=== PATIENT | male | born 1970 | race Caucasian/White ===

== ENCOUNTER 2017-07-18 20:52 | Emergency (ER) | payer SELFPAY ==
[2017-07-18] MEDS ORDERED: Sodium Chloride 0.9% 1,000 ML IV STA (22:04)
--- NOTE | 2017-07-18 22:24 | ED PDOC ---
HPI: Abdomen Time Seen by Provider: 07/18/17 21:24 Chief Complaint (Nursing): Abdominal Pain History Per: Patient History/Exam Limitations: no limitations Onset/Duration Of Symptoms: Days (3) Additional Complaint(s): 47-year-old male with past medical history of diverticulitis complains of intermittent lower abdominal pain associated with dark stools and constipation for the past 3 days. Patient states that his last episode of diverticulitis was 5 years ago and he was treated with antibiotics, required no surgery. He adds that he normally has a bowel movement every other day. Otherwise: (+) nausea, (- ) vomiting, (-) diarrhea, (-) fever, (-) melena, (-) hematochezia. Has no history of prior abdominal surgery. PMD Tala Past Medical History Vital Signs: Last Vital Signs Temp 97.8 F 07/19/17 03:06 Pulse 73 07/19/17 03:06 Resp 17 07/19/17 03:06 BP 117/71 07/19/17 03:06 Pulse Ox 98 07/19/17 03:06 - Medical History PMH: Diverticulitis - Family History Family History: States: No Known Family Hx - Home Medications Home Medications: Ambulatory Orders Medication Instructions Recorded Cyclobenzaprine HCl [Flexeril] 10 mg PO TID #21 tab 02/22/15 Naproxen 500 mg PO Q12 #20 tab 02/22/15 Ciprofloxacin HCl [Cipro] 500 mg PO BID #14 tablet 07/19/17 Metronidazole [Flagyl] 500 mg PO TID #21 tab 07/19/17 - Allergies Allergies/Adverse Reactions: Allergies Allergy/AdvReac Type Severity Reaction Status Date / Time No Known Allergies Allergy Verified 07/18/17 21:05 Review of Systems Constitutional: Negative for: Fever, Malaise Cardiovascular: Negative for: Chest Pain, Palpitations Respiratory: Negative for: Cough, Shortness of Breath Gastrointestinal: Positive for: Nausea, Abdominal Pain, Constipation, Other ( dark stools) Genitourinary Male: Negative for: Dysuria, Frequency Skin: Negative for: Rash, Lesions Physical Exam - Physical Exam Comments: GENERAL APPEARANCE: Patient is awake, alert, oriented x 3, in mild painful distress. SKIN: Warm, dry; (-) cyanosis. EYES: (-) conjunctival pallor, (-) scleral icterus. ENMT: Mucous membranes moist. NECK: (-) tenderness, (-) stiffness, (-) lymphadenopathy. CHEST AND RESPIRATORY: (-) rales, (-) rhonchi, (-) wheezes; breath sounds equal bilaterally. HEART AND CARDIOVASCULAR: (-) irregularity; (-) murmur, (-) gallop. ABDOMEN AND GI: (-) distention. Bowel sounds active; (+) diffuse abdominal tenderness, greatest in the LLQ, (-) guarding, (-) rebound, (-) palpable masses , (-) CVA tenderness. EXTREMITIES: (-) deformity, (-) edema, (+) distal pulses. NEURO AND PSYCH: Mental status as above; (-) focal findings. - Laboratory Results Result Diagrams: 07/18/17 22:12 07/18/17 22:12 - ECG O2 Sat by Pulse Oximetry: 99 Medical Decision Making Medical Decision Making: Impression : r/o diverticulitis, consider constipation Plan: -- Labs -- IV fluids -- Urinalysis -- Reassess and disposition -- CT AP Patient offered analgesics, but is refusing at this time, states that he is comfortable for now. Labs reviewed and are wnl. Patient pending CT. [address], results pending. CT A/P with IV contrast: FINDINGS: LUNG BASES: No significant abnormality seen. ABDOMEN: LIVER: No acute abnormality of the liver identified. GALLBLADDER AND BILE DUCTS: No CT evidence of acute cholecystitis. No evidence of significant biliary ductal dilatation. PANCREAS: No CT evidence of acute pancreatitis. SPLEEN: No acute abnormality of the spleen identified. ADRENALS: No acute abnormality of the adrenal glands identified. KIDNEYS AND URETERS: Low density lesion in the right kidney kidney, most likely a cyst. This measures 1.4 cm. STOMACH AND BOWEL: Mild to moderate fat stranding and infiltration, consistent with inflammatory change, is seen in the fat adjacent to the proximal sigmoid colon. Segmental wall thickening of the colon is also noted in this same area. Multiple nearby colonic diverticula are seen. Findings are most compatible with acute diverticulitis. No evidence of significant focal fluid collection or abscess. No nearby extraluminal air seen to suggest perforation. Moderate diverticulosis of the colon. Otherwise, no significant abnormality of the bowel is identified. No evidence of small bowel obstruction. PELVIS: APPENDIX: Normal appendix is not seen, however, there are no significant inflammatory changes visualized in the expected location of the appendix to suggest appendicitis. Recommend clinical correlation. BLADDER: Mild thickening of the bladder wall. REPRODUCTIVE: Prostate gland is mildly enlarged. ABDOMEN and PELVIS: INTRAPERITONEAL SPACE: See above. No evidence of diffuse free intraperitoneal air or significant free fluid. BONES/JOINTS: No acute fractures or other acute bony abnormality noted. SOFT TISSUES: No acute abnormality of the visualized soft tissues is seen. VASCULATURE: No evidence of abdominal aortic aneurysm. No evidence of periaortic hemorrhage. LYMPH NODES: No evidence of diffuse lymphadenopathy. IMPRESSION: - Findings compatible with acute diverticulitis of the sigmoid colon. No evidence of abscess formation or perforation. - Mild bladder wall thickening. This is a nonspecific finding, but can be seen with cystitis. Recommend clinical correlation. - See above for remaining findings. Dictated and Authenticated by: Ashely Maloney MD 07/19/2017 12:14 AM Eastern Time ([place] & [place]) 0030 On re-evaluation, patient reports that his pain is mild at this time, is refusing analgesics still as he states that he is comfortable. On exam, abdomen remains soft with mild diffuse abdominal tenderness, greatest in the lower abdomen, no guarding. Lab and CT results d/w the patient. Cipro and flagyl IV ordered. 0130 Based on history, exam and diagnostic results plan will be for outpatient follow -up. Patient feels comfortable going home. Advised to follow up with primary care physician in 1-2 days without fail. Advised to take medication as prescribed. Return to the emergency room at any time for any new or worsening symptoms. Patient states he fully agrees with and understands discharge instructions. States that he agrees with the plan and disposition. Verbalized and repeated discharge instructions and plan. I have given the patient opportunity to ask any additional questions. Disposition - Clinical Impression Clinical Impression: Acute diverticulitis - Patient ED Disposition Is Patient to be Admitted: No Counseled Patient/Family Regarding: Studies Performed, Diagnosis, Need For Followup, Rx Given - Disposition Disposition: Routine/Home Disposition Time: 00:30 Condition: STABLE Additional Instructions: Thank you for letting us take care of you today. You were treated for acute diverticulitis. The emergency medical care you received today was directed at your acute symptoms. If you were prescribed any medication, please fill it and take as directed. It may take several days for your symptoms to resolve. Return to the Emergency Department if your symptoms worsen, do not improve, or if you have any other problems. Please contact your doctor in 2 days for re-evaluation and follow up. Bring any paperwork you were given at discharge with you along with any medications you are taking to your follow up visit. Our treatment cannot replace ongoing medical care by a primary care provider (PCP) outside of the emergency department. Thank you for allowing the [facility] team to be part of your care today. If you had a CT scan: A Radiologist will review the ED reading if any change in treatment is needed we will contact you. Prescriptions: Ciprofloxacin HCl [Cipro] 500 mg PO BID #14 tablet Metronidazole [Flagyl] 500 mg PO TID #21 tab Instructions: Diverticulitis Forms: [employer] ([place]), [facility] ED School/Work Excuse
[2017-07-18 22:29] LABS: URINE BILIRUBIN NEGATIVE (NEGATIVE); URINE BLOOD SMALL (NEGATIVE); URINE CLARITY CLEAR (Clear); URINE COLOR YELLOW (YELLOW); URINE GLUCOSE (UA) NEG (Normal); URINE LEUKOCYTE ESTERASE NEG Leu/uL (Negative); URINE PROTEIN NEGATIVE (NEGATIVE); URINE UROBILINOGEN 0.2-1.0 mg/dL (0.2-1.0)
[2017-07-18 22:34] LABS: ALB/GLOB RATIO 1.1 (1.0-2.1); ALT/SGPT 56 U/L (21-72); AST/SGOT 52 U/L (17-59); BLOOD UREA NITROGEN 26 mg/dl (9-20); CALCIUM 8.9 mg/dL (8.4-10.2); GFR AFRICAN-AMERICAN > 60; GFR NON-AFRICAN AMERICAN > 60; LIPASE 156 U/L (23-300)
[2017-07-18 22:38] LABS: BASO # 0.1 K/uL (0.0-0.2); BASO % 0.8 % (0.0-2.0); EOS # 0.2 K/uL (0.0-0.7); EOS % 2.4 % (0.0-4.0); HEMOGLOBIN 13.6 g/dL (12.0-18.0); LYMPH # 2.9 K/uL (1.0-4.3); LYMPH % 29.8 % (20.0-40.0); MEAN CELL VOLUME 85.3 fl (80.0-94.0); MEAN CORPUSCULAR HEMOGLOBIN 28.8 pg (27.0-31.0); MEAN CORPUSCULAR HGB CONC 33.8 g/dL (33.0-37.0); MEAN PLATELET VOLUME 9.3 fl (7.2-11.7); MONO # 1.1 K/uL (0.0-0.8); MONO % 10.9 % (0.0-10.0); NEUT # 5.4 K/uL (1.8-7.0); NEUT % 56.1 % (50.0-75.0); NRBC % 0.1 % (0.0-0.0); RBC 4.72 Mil/uL (4.40-5.90); RED CELL DISTRIBUTION WIDTH 12.8 % (11.5-14.5); WHITE BLOOD COUNT 9.7 K/uL (4.8-10.8)
[2017-07-18] MEDS ORDERED: Sodium Chloride 0.9% 50 ML IV ONE (22:44)
[2017-07-18] MEDS ORDERED: Iohexol 300 100 ML IJ ONE (22:44)
--- NOTE | 2017-07-19 00:14 | CT ---
EXAM: CT Abdomen and Pelvis With Intravenous Contrast EXAM DATE/TIME: 07/18/2017 10:07 PM CLINICAL HISTORY: 47 years old, male; Pain; Abdominal pain; Localized; Lower; Additional info: Lower abd pain, R/O diverticulitis TECHNIQUE: Axial computed tomography images of the abdomen and pelvis with intravenous contrast. All CT scans at this facility use one or more dose reduction techniques, viz.: automated exposure control; ma/kV adjustment per patient size (including targeted exams where dose is matched to indication; i.e. head); or iterative reconstruction technique. Coronal and sagittal reformatted images were created and reviewed. CONTRAST: 90 mL of [id number] administered intravenously. COMPARISON: Prior CT abdomen and pelvis of 2011-11-11 FINDINGS: LUNG BASES: No significant abnormality seen. ABDOMEN: LIVER: No acute abnormality of the liver identified. GALLBLADDER AND BILE DUCTS: No CT evidence of acute cholecystitis. No evidence of significant biliary ductal dilatation. PANCREAS: No CT evidence of acute pancreatitis. SPLEEN: No acute abnormality of the spleen identified. ADRENALS: No acute abnormality of the adrenal glands identified. KIDNEYS AND URETERS: Low density lesion in the right kidney kidney, most likely a cyst. This measures 1.4 cm. STOMACH AND BOWEL: Mild to moderate fat stranding and infiltration, consistent with inflammatory change, is seen in the fat adjacent to the proximal sigmoid colon. Segmental wall thickening of the colon is also noted in this same area. Multiple nearby colonic diverticula are seen. Findings are most compatible with acute diverticulitis. No evidence of significant focal fluid collection or abscess. No nearby extraluminal air seen to suggest perforation. Moderate diverticulosis of the colon. Otherwise, no significant abnormality of the bowel is identified. No evidence of small bowel obstruction. PELVIS: APPENDIX: Normal appendix is not seen, however, there are no significant inflammatory changes visualized in the expected location of the appendix to suggest appendicitis. Recommend clinical correlation. BLADDER: Mild thickening of the bladder wall. REPRODUCTIVE: Prostate gland is mildly enlarged. ABDOMEN and PELVIS: INTRAPERITONEAL SPACE: See above. No evidence of diffuse free intraperitoneal air or significant free fluid. BONES/JOINTS: No acute fractures or other acute bony abnormality noted. SOFT TISSUES: No acute abnormality of the visualized soft tissues is seen. VASCULATURE: No evidence of abdominal aortic aneurysm. No evidence of periaortic hemorrhage. LYMPH NODES: No evidence of diffuse lymphadenopathy. IMPRESSION: - Findings compatible with acute diverticulitis of the sigmoid colon. No evidence of abscess formation or perforation. - Mild bladder wall thickening. This is a nonspecific finding, but can be seen with cystitis. Recommend clinical correlation. - See above for remaining findings.
[2017-07-19] MEDS ORDERED: metroNIDAZOLE 500mg/100ml NS 100 ML IVPB STA (00:31)
[2017-07-19] MEDS ORDERED: Ciprofloxacin 400mg/200ml D5W 400 MG/200 ML BAG IVPB STA (00:31)
[2017-07-19] MEDS ORDERED: Ciprofloxacin 400mg/200ml D5W 400 MG/200 ML BAG IVPB ONE (00:47)
[2017-07-19] MEDS ORDERED: metroNIDAZOLE 500mg/100ml NS 100 ML IVPB ONE (00:47)
[2017-07-19 03:07] VITALS: BP 117/71; PULSE 73; RESP 17; TEMP 97.8
[2017-07-19 03:54] VITALS: O2SAT 99
== END 2017-07-19 03:06 | disposition home or self-care (01) ==
LOC: H.ER 20:52
DX: K57.92 Diverticulitis of intestine, part unspecified, without perforation or abscess without bleeding (principal)
CPT/HCPCS: 74177; 80053; 81003; 83690; 85025; 96361; 96365; 96367; 99284; J0744; J7030; Q9967

== ENCOUNTER 2017-12-12 18:14 | Emergency (ER) | payer OTHER ==
[2017-12-12 18:37] VITALS: RESP 18
--- NOTE | 2017-12-12 18:59 | ED PDOC ---
HPI: Male Pain Time Seen by Provider: 12/12/17 18:39 Chief Complaint (Nursing): Male Genitourinary Chief Complaint (Provider): Male Genitourinary History Per: Patient History/Exam Limitations: no limitations Onset/Duration Of Symptoms: Days Current Symptoms Are (Timing): Still Present Associated Symptoms: Urinary Symptoms Additional Complaint(s): 47 y/o male presents to the ED for evaluation of constant genitourinary pain, onset 3 weeks ago. Patient states pain is located inside between the rectum and the testicles and is associated with urinary frequency. Patient denies nausea, vomiting and diarrhea. In addition, patient reports of pain to the anterior neck area for approximately one week. Patient states he feels like there is something moving inside. Patient also denies fever and chills. PMD: none Past Medical History Reviewed: Historical Data, Nursing Documentation, Vital Signs Vital Signs: Last Vital Signs Temp 97.5 F L 12/12/17 18:35 Pulse 69 12/12/17 18:35 Resp 18 12/12/17 18:35 BP 117/77 12/12/17 18:35 Pulse Ox 100 12/12/17 18:35 - Medical History PMH: Diverticulitis - Surgical History Surgical History: No Surg Hx - Family History Family History: States: Unknown Family Hx - Home Medications Home Medications: Ambulatory Orders Medication Instructions Recorded Cyclobenzaprine HCl [Flexeril] 10 mg PO TID #21 tab 02/22/15 Naproxen 500 mg PO Q12 #20 tab 02/22/15 Ciprofloxacin HCl [Cipro] 500 mg PO BID #14 tablet 07/19/17 Metronidazole [Flagyl] 500 mg PO TID #21 tab 07/19/17 Doxycycline Monohydrate [Mondoxyne 100 mg PO BID #20 capsule 12/12/17 Nl] - Allergies Allergies/Adverse Reactions: Allergies Allergy/AdvReac Type Severity Reaction Status Date / Time No Known Allergies Allergy Verified 12/12/17 18:35 Review of Systems ROS Statement: Except As Marked, All Systems Reviewed And Found Negative Constitutional: Negative for: Fever, Chills ENT: Positive for: Throat Pain Gastrointestinal: Negative for: Nausea, Vomiting, Diarrhea Genitourinary Male: Positive for: Frequency, Other (Pain between the rectum and testicles) Physical Exam - Reviewed Nursing Documentation Reviewed: Yes Vital Signs Reviewed: Yes - Physical Exam Appears: Positive for: No Acute Distress Head Exam: Positive for: ATRAUMATIC Skin: Positive for: Normal Color, Warm, Dry Eye Exam: Positive for: Normal appearance Cardiovascular/Chest: Negative for: Bradycardia, Tachycardia Respiratory: Negative for: Accessory Muscle Use, Respiratory Distress Neurologic/Psych: Positive for: Alert, Oriented (x3) - Laboratory Results Result Diagrams: 12/12/17 19:02 12/12/17 19:02 - ECG O2 Sat by Pulse Oximetry: 100 (RA) Pulse Ox Interpretation: Normal Medical Decision Making Medical Decision Making: Time: 1855 Plan: -- CT Neck Soft Tissue w/ Contrast -- CT Pelvis w/ IV Contrast -- CMP -- CBC with Differentials -- Chlamydia/GC RNA, TNA -- Urine Culture -- Urinalysis Scribe Attestation: Documented by Karie Gomes, acting as a scribe for Monique Prescott PA-C. Provider Scribe Attestation: All medical record entries made by the Scribe were at my direction and personally dictated by me. I have reviewed the chart and agree that the record accurately reflects my personal performance of the history, physical exam, medical decision making, and the department course for this patient. I have also personally directed, reviewed, and agree with the discharge instructions and disposition. Disposition - Clinical Impression Clinical Impression: Prostate enlargement, Sinusitis - Patient ED Disposition Is Patient to be Admitted: No Counseled Patient/Family Regarding: Diagnosis, Need For Followup, Rx Given - Disposition Disposition: Routine/Home Disposition Time: 22:47 Condition: GOOD Prescriptions: Doxycycline Monohydrate [Mondoxyne Nl] 100 mg PO BID #20 capsule Instructions: Sinusitis, Adult (DC), Benign Prostatic Hyperplasia (Enlarged Prostate) Forms: [employer] ([place])
[2017-12-12 19:41] LABS: BASO % 0.7 % (0.0-2.0); EOS # 0.1 K/uL (0.0-0.7); EOS % 1.9 % (0.0-4.0); HEMOGLOBIN 13.5 g/dL (12.0-18.0); LYMPH # 2.1 K/uL (1.0-4.3); LYMPH % 33.5 % (20.0-40.0); MEAN CELL VOLUME 84.4 fl (80.0-94.0); MEAN CORPUSCULAR HEMOGLOBIN 28.5 pg (27.0-31.0); MEAN CORPUSCULAR HGB CONC 33.8 g/dL (33.0-37.0); MEAN PLATELET VOLUME 8.7 fl (7.2-11.7); MONO # 0.5 K/uL (0.0-0.8); MONO % 8.4 % (0.0-10.0); NEUT # 3.5 K/uL (1.8-7.0); NEUT % 55.5 % (50.0-75.0); NRBC % 0.2 % (0.0-0.0); RBC 4.73 Mil/uL (4.40-5.90); RED CELL DISTRIBUTION WIDTH 13.3 % (11.5-14.5); WHITE BLOOD COUNT 6.3 K/uL (4.8-10.8)
[2017-12-12 19:48] LABS: URINE BILIRUBIN NEGATIVE (NEGATIVE); URINE BLOOD SMALL (NEGATIVE); URINE CLARITY CLEAR (Clear); URINE COLOR YELLOW (YELLOW); URINE GLUCOSE (UA) NEG (Normal); URINE LEUKOCYTE ESTERASE NEG Leu/uL (Negative); URINE PROTEIN NEGATIVE (NEGATIVE); URINE UROBILINOGEN 0.2-1.0 mg/dL (0.2-1.0)
[2017-12-12 20:03] LABS: ALB/GLOB RATIO 1.1 (1.0-2.1); ALT/SGPT 34 U/L (21-72); AST/SGOT 32 U/L (17-59); BLOOD UREA NITROGEN 21 mg/dl (9-20); CALCIUM 9.1 mg/dL (8.4-10.2); GFR NON-AFRICAN AMERICAN > 60
[2017-12-12] MEDS ORDERED: Iohexol 300 100 ML IJ ONE (20:17)
[2017-12-12] MEDS ORDERED: Sodium Chloride 0.9% 50 ML IV ONE (20:17)
[2017-12-12 22:53] VITALS: BP 109/65; PULSE 61; TEMP 97.9; O2SAT 99
--- NOTE | 2017-12-13 12:44 | CT ---
Date of service: 12/12/2017 PROCEDURE: CT Pelvis with contrast HISTORY: pain between rectum and testicles x 3 weeks COMPARISON: None available. TECHNIQUE: Contiguous axial images of the pelvis with contrast. Coronal and sagittal reformats generated. Contrast dose: Radiation dose: Total exam DLP = 1091.49 mGy-cm. This CT exam was performed using one or more of the following dose reduction techniques: Automated exposure control, adjustment of the mA and/or kV according to patient size, and/or use of iterative reconstruction technique. FINDINGS: BLADDER: Mild nonspecific bladder wall thickening. REPRODUCTIVE ORGANS: Mild prostate enlargement. Bilateral hydroceles. VISUALIZED BOWEL: Colonic diverticulosis. PERITONEUM: Unremarkable, as visualized. No free fluid. No free air. LYMPH NODES: Unremarkable. No enlarged lymph nodes. VASCULATURE: No aortic atherosclerotic calcification or mural plaque present. BONES: No fracture or focal lesion. OTHER FINDINGS: None. IMPRESSION: Bilateral hydroceles. Mild prostate enlargement. Mild nonspecific bladder wall thickening.
--- NOTE | 2017-12-13 12:56 | CT ---
Date of service: 12/12/2017 PROCEDURE: CT NECK WITH CONTRAST HISTORY: constant anterior neck pain, cracking/popping sens COMPARISON: None available. TECHNIQUE: CT of the neck with intravenous contrast. Coronal and sagittal reformats generated. Intravenous contrast dose: Radiation dose: Total exam DLP = 0.0 mGy-cm. This CT exam was performed using one or more of the following dose reduction techniques: Automated exposure control, adjustment of the mA and/or kV according to patient size, and/or use of iterative reconstruction technique. FINDINGS: NASOPHARYNX: Unremarkable. SUPRAHYOID NECK: Unremarkable oropharynx, oral cavity, parapharyngeal space and retropharyngeal space. INFRAHYOID NECK: Unremarkable larynx, hypopharynx, and supraglottic space. Vocal cords intact. MASS: None. GLANDS: Parotid and submandibular glands unremarkable. Normal size thyroid gland, without nodule. LYMPH NODES: Normal. No lymphadenopathy. CERVICAL SPINE: No fracture or focal lesion. VASCULAR STRUCTURES: Unremarkable. OTHER FINDINGS: None. IMPRESSION: Unremarkable contrast enhanced CT of the neck.
== END 2017-12-12 22:55 | disposition home or self-care (01) ==
LOC: H.ER 18:14
DX: N40.1 Benign prostatic hyperplasia with lower urinary tract symptoms (principal); J32.9 Chronic sinusitis, unspecified
CPT/HCPCS: 70491; 72193; 80053; 81003; 85025; 87086; 87491; 87591; 99283; Q9967

== ENCOUNTER 2018-04-13 17:18 | Emergency (ER) | payer MEDICAID ==
[2018-04-13 18:00] VITALS: RESP 16
[2018-04-13] MEDS: Sodium Chloride 0.9% 1,000 ML IV STA (19:22)
--- NOTE | 2018-04-13 19:29 | ED PDOC ---
HPI: Abdomen Time Seen by Provider: 04/13/18 18:34 Chief Complaint (Nursing): Abdominal Pain Chief Complaint (Provider): Abdominal Pain History Per: Patient History/Exam Limitations: no limitations Onset/Duration Of Symptoms: Days (x3) Current Symptoms Are (Timing): Still Present Location Of Pain/Discomfort: Suprapubic Quality Of Discomfort: "Pain" Associated Symptoms: Fever, Chills, Diarrhea, Loss Of Appetite, Other (body aches) Additional Complaint(s): 47 year old male with history of diverticulitis presents to the ED with abdominal pain. On Wednesday, patient developed lower abdominal discomfort that has been worsening since onset. Pain is associated with nonbloody diarrhea and decreased appetite. He reports pain worsens a little after he eats. Today, he developed fever, chills, body aches, mild dry cough. He states pain is similar to past episodes of diverticulitis. Patient has a 10 year old daughter at home who is sick with the flu, confirmed via nasal swab. PMD: Clinic Past Medical History Reviewed: Historical Data, Nursing Documentation, Vital Signs Vital Signs: Last Vital Signs Temp 98.1 F 04/13/18 17:57 Pulse 80 04/13/18 17:57 Resp 16 04/13/18 17:57 BP 126/82 04/13/18 17:57 Pulse Ox 98 04/13/18 17:57 - Medical History PMH: Diverticulitis - Family History Family History: States: Unknown Family Hx - Home Medications Home Medications: Ambulatory Orders Medication Instructions Recorded Cyclobenzaprine HCl [Flexeril] 10 mg PO TID #21 tab 02/22/15 Naproxen 500 mg PO Q12 #20 tab 02/22/15 Ciprofloxacin HCl [Cipro] 500 mg PO BID #14 tablet 07/19/17 Metronidazole [Flagyl] 500 mg PO TID #21 tab 07/19/17 Doxycycline Monohydrate [Mondoxyne 100 mg PO BID #20 capsule 12/12/17 Nl] Ciprofloxacin [Cipro] 1 tab PO BID #14 tab 04/13/18 Ibuprofen [Motrin Tab] 600 mg PO Q8 PRN #30 tab 04/13/18 Oseltamivir Cap [Tamiflu] 75 mg PO DAILY #9 cap 04/13/18 Saccharomyces Boulardi [Florastor] 500 mg PO BID #28 cap 04/13/18 metroNIDAZOLE [Flagyl] 500 mg PO TID #30 tab 04/13/18 - Allergies Allergies/Adverse Reactions: Allergies Allergy/AdvReac Type Severity Reaction Status Date / Time No Known Allergies Allergy Verified 04/13/18 17:57 Review of Systems ROS Statement: Except As Marked, All Systems Reviewed And Found Negative Constitutional: Positive for: Fever, Chills Respiratory: Positive for: Cough Gastrointestinal: Positive for: Abdominal Pain, Diarrhea Musculoskeletal: Positive for: Other (body aches) Physical Exam - Reviewed Nursing Documentation Reviewed: Yes Vital Signs Reviewed: Yes - Physical Exam Appears: Positive for: In Acute Distress (mild painful ) Head Exam: Positive for: ATRAUMATIC, NORMOCEPHALIC Skin: Positive for: Warm, Dry Eye Exam: Positive for: EOMI, PERRL ENT: Positive for: Pharynx Is (clear), Other (moist mucous membranes) Neck: Positive for: Painless ROM, Supple Cardiovascular/Chest: Positive for: Regular Rate, Rhythm. Negative for: Murmur Respiratory: Positive for: Normal Breath Sounds. Negative for: Respiratory Distress Gastrointestinal/Abdominal: Positive for: Soft, Tenderness (suprapubic and LLQ). Negative for: Mass, Guarding, Rebound Back: Positive for: Normal Inspection. Negative for: L CVA Tenderness, R CVA Tenderness Extremity: Positive for: Normal ROM. Negative for: Deformity Lymphatic: Negative for: Adenopathy Neurologic/Psych: Positive for: Alert. Negative for: Motor/Sensory Deficits - Laboratory Results Result Diagrams: 04/13/18 19:26 04/13/18 19:26 - ECG O2 Sat by Pulse Oximetry: 98 (RA) Pulse Ox Interpretation: Normal Medical Decision Making Medical Decision Making: Time: 1857 Impression: Febrile illness and abdominal pain Differential diagnoses include but are not limited to: diverticulitis, influenza, viral syndrome, and gastroenteritis. Plan: --CT abdomen and pelvis --CMP --Lact acid --CBC --Tamiflu --Toradol --Tylenol --blood culture --stool culture --influenza --UA Time: 2225 CT abdomen and pelvis: FINDINGS: LUNG BASES: The lung bases appear clear. No pleural effusions are seen. LIVER: Unremarkable. GALLBLADDER AND BILE DUCTS: The gallbladder appears within normal limits. No radioopaque gallstones are seen. No biliary ductal dilatation is evident. PANCREAS: Unremarkable. SPLEEN: Unremarkable. ADRENAL GLANDS: Unremarkable. KIDNEYS, URETERS, AND BLADDER: Both kidneys are normal in size and position. A 1.3 cm cortical cyst is noted in the lateral mid right renal pole.There is no hydronephrosis or hydroureter. No urinary calculi are seen. The urinary bladder is normal in size and configuration. STOMACH AND BOWEL: There is mucosal wall thickening of the stomach measuring up to 1.9 cm transversely. This is suggestive of gastritis. No evidence of bowel obstruction. No evidence suggesting enteritis. There is diverticulosis coli noted in the descending and sigmoid-rectosigmoid colon with associated pericolonic inflammatory stranding compatible with acute diverticulitis. The findings are most pronounced in the lower descending and sigmoid colon. There is no definite pericolonic abscess formation or microperforation detected. APPENDIX: No evidence of acute appendicitis on CT examination. PERITONEUM: No free fluid. No free air. LYMPH NODES: No lymphadenopathy is evident. REPRODUCTIVE: Some prostatic central zone calcifications are noted. Otherwise, unremarkable as visualized. VASCULATURE: No evidence of abdominal aortic aneurysm. BONES: No aggressive appearing osseous lesion. No acute osseous pathology evident. IMPRESSION: 1. Diverticulosis coli of the left hemicolon with associated acute diverticulitis involving the lower descending and sigmoid colon. 2. Findings suggestive of gastritis. 3. Some prostatic central zone calcifications are present. 4. Incidental note is made of a small right renal cyst in the lateral midpole DW pt findings and plan of care. On reevaluation, pt stable for discharge. Return parameters discussed: intractable pain or vomiting, fainting, breathing difficulty, other worrisome symptoms. Questions/concerns answered/addressed. Scribe Attestation: Documented by Naima Murray, acting as a scribe for Mabel Mcgowan MD. Provider Scribe Attestation: All medical record entries made by the Scribe were at my direction and personally dictated by me. I have reviewed the chart and agree that the record accurately reflects my personal performance of the history, physical exam, medical decision making, and the department course for this patient. I have also personally directed, reviewed, and agree with the discharge instructions and disposition. Disposition - Clinical Impression Clinical Impression: Acute diverticulitis Counseled Patient/Family Regarding: Studies Performed, Diagnosis, Need For Followup, Rx Given - Disposition Referrals: [facility] [Outside] Silas Pearson MD [Staff Provider] - Disposition: Routine/Home Disposition Time: 22:30 Condition: STABLE Additional Instructions: BLANDITO COMIDO Y [facility] A RECETO VISITO [facility] O [facility]IC EN 2-3 ROBINS A CHEQAR DE NUEVO Prescriptions: Ciprofloxacin [Cipro] 1 tab PO BID #14 tab Ibuprofen [Motrin Tab] 600 mg PO Q8 PRN #30 tab PRN Reason: Pain, Moderate (4-7) metroNIDAZOLE [Flagyl] 500 mg PO TID #30 tab Oseltamivir Cap [Tamiflu] 75 mg PO DAILY #9 cap Saccharomyces Boulardi [Florastor] 500 mg PO BID #28 cap Instructions: Diverticulitis (DC) Print Language: K[place]ILI
[2018-04-13 19:55] LABS: BASO % 0.3 % (0.0-2.0); EOS # 0.1 K/uL (0.0-0.7); EOS % 0.8 % (0.0-4.0); HEMOGLOBIN 13.3 g/dL (12.0-18.0); MEAN CELL VOLUME 85.5 fl (80.0-94.0); MEAN CORPUSCULAR HEMOGLOBIN 28.3 pg (27.0-31.0); MEAN CORPUSCULAR HGB CONC 33.1 g/dL (33.0-37.0); MEAN PLATELET VOLUME 8.5 fl (7.2-11.7); MONO # 0.9 K/uL (0.0-0.8); MONO % 10.9 % (0.0-10.0); NEUT # 4.9 K/uL (1.8-7.0); NRBC % 0.1 % (0.0-0.0); RBC 4.7 Mil/uL (4.40-5.90); RED CELL DISTRIBUTION WIDTH 12.8 % (11.5-14.5); WHITE BLOOD COUNT 7.8 K/uL (4.8-10.8)
[2018-04-13] MEDS ORDERED: Sodium Chloride 0.9% 50 ML IV ONE (20:01)
[2018-04-13] MEDS ORDERED: Iohexol 300 100 ML IJ ONE (20:01)
[2018-04-13 20:07] LABS: ALB/GLOB RATIO 1.2 (1.0-2.1); ALBUMIN 4.1 g/dL (3.5-5.0); ALT/SGPT 65 U/L (21-72); AST/SGOT 49 U/L (17-59); BLOOD UREA NITROGEN 19 mg/dl (9-20); CALCIUM 8.8 mg/dL (8.4-10.2); GFR NON-AFRICAN AMERICAN > 60
[2018-04-13 20:17] LABS: URINE BILIRUBIN NEGATIVE (NEGATIVE); URINE BLOOD MODERATE (NEGATIVE); URINE CLARITY CLEAR (Clear); URINE COLOR YELLOW (YELLOW); URINE GLUCOSE (UA) NEG (NEGATIVE); URINE LEUKOCYTE ESTERASE NEG Leu/uL (Negative); URINE PROTEIN NEGATIVE (NEGATIVE); URINE UROBILINOGEN 0.2-1.0 mg/dL (0.2-1.0)
[2018-04-13 23:15] VITALS: BP 118/68; PULSE 76; TEMP 98.3; O2SAT 99
--- NOTE | 2018-04-14 12:59 | CT ---
Date of service: 04/13/2018 PROCEDURE: CT Abdomen and Pelvis with contrast HISTORY: LLQ pain h/o diverticulitis r/o abscess COMPARISON: None available. TECHNIQUE: CT scan of the abdomen and pelvis was performed after administration of intravenous contrast. Oral contrast was not administered. Coronal and sagittal reformatted images were obtained. Contrast dose: 95 mL Omnipaque 300 Radiation dose: Total exam DLP = 475.7 mGy-cm. This CT exam was performed using one or more of the following dose reduction techniques: Automated exposure control, adjustment of the mA and/or kV according to patient size, and/or use of iterative reconstruction technique. FINDINGS: LOWER THORAX: The visualized lungs are clear. LIVER: Normal in size with homogeneous enhancement. No gross lesion or ductal dilatation. GALLBLADDER AND BILE DUCTS: Well distended. No calcified gallstones, wall thickening or pericholecystic fluid. PANCREAS: Normal in size with homogeneous enhancement. No gross lesion or ductal dilatation. SPLEEN: Normal in size and appearance. ADRENALS: No discrete nodule. KIDNEYS AND URETERS: Normal in size with homogeneous enhancement. No hydronephrosis. No solid mass. There is a 1.1 cm simple cyst in the right interpolar region and 3 mm simple cyst in the right upper pole. VASCULATURE: No aortic aneurysm. There are no aortic atherosclerotic calcifications or mural plaque present. BOWEL: Evaluation of the bowel is limited in the absence of oral contrast. The small bowel loops are normal in caliber. There is sigmoid diverticulosis. There is apparent moderate circumferential mural thickening in the sigmoid colon with pericolonic inflammatory changes. No micro perforation or abscess. No bowel obstruction. APPENDIX: Not distinctly identified but no inflammatory changes in the right lower quadrant. PERITONEUM: No free fluid. No free air. LYMPH NODES: No enlarged lymph nodes. BLADDER: Well distended and normal in appearance. REPRODUCTIVE: The prostate gland is normal in size. BONES: No acute fracture. Within normal limits for the patient's age. OTHER FINDINGS: None. IMPRESSION: Acute uncomplicated sigmoid diverticulitis. A preliminary report was provided by [email or web address].
== END 2018-04-13 23:13 | disposition home or self-care (01) ==
LOC: H.ER 17:18
DX: K57.32 Diverticulitis of large intestine without perforation or abscess without bleeding (principal); N28.1 Cyst of kidney, acquired
CPT/HCPCS: 74177; 80053; 81003; 83605; 85025; 87040; 87086; 87804; 96361; 96374; 99283; J1885; J7030; Q9967

== ENCOUNTER 2018-04-20 18:37 | Inpatient (IN) | payer MEDICAID, OTHER ==
--- NOTE | 2018-04-20 19:54 | ED PDOC ---
HPI: Back Time Seen by Provider: 04/20/18 19:34 Chief Complaint (Nursing): Back Pain Chief Complaint (Provider): Back Pain History Per: Patient History/Exam Limitations: no limitations Onset/Duration Of Symptoms: Days (x1), Worse Since (today) Current Symptoms Are (Timing): Still Present Additional Complaint(s): Patient is a 47 y/o male with a PMHx of diverticulitis and abdominal abscess who presents to the ED for evaluation of mid-lower back pain onset yesterday. Cordell grigsby also complains of dysuria and frequency. Patient states his symptoms started worsening today, three hours prior to arrival. Patient denies leg pain. PCP: Dr. Silas Pearson Past Medical History Reviewed: Historical Data, Nursing Documentation, Vital Signs Vital Signs: Last Vital Signs Temp 97.3 F L 04/20/18 19:24 Pulse 91 H 04/20/18 19:24 Resp 16 04/20/18 19:24 BP 141/93 H 04/20/18 19:24 Pulse Ox 98 04/20/18 19:24 - Medical History PMH: Diverticulitis Other PMH: abdominal abscess - Surgical History Surgical History: No Surg Hx - Family History Family History: States: Unknown Family Hx - Immunization History Hx Tetanus Toxoid Vaccination: No Hx Influenza Vaccination: No Hx Pneumococcal Vaccination: No - Home Medications Home Medications: Ambulatory Orders Medication Instructions Recorded No Known Home Med 04/20/18 - Allergies Allergies/Adverse Reactions: Allergies Allergy/AdvReac Type Severity Reaction Status Date / Time No Known Allergies Allergy Verified 04/20/18 19:24 Review of Systems ROS Statement: Except As Marked, All Systems Reviewed And Found Negative Genitourinary Male: Positive for: Dysuria, Frequency Musculoskeletal: Positive for: Back Pain (mid-lower). Negative for: Leg Pain Physical Exam - Reviewed Nursing Documentation Reviewed: Yes Vital Signs Reviewed: Yes - Physical Exam Appears: Positive for: Non-toxic, No Acute Distress Head Exam: Positive for: ATRAUMATIC, NORMAL INSPECTION, NORMOCEPHALIC Skin: Positive for: Normal Color, Warm, Dry Eye Exam: Positive for: EOMI, Normal appearance, PERRL Neck: Positive for: Normal, Painless ROM, Supple Cardiovascular/Chest: Positive for: Regular Rate, Rhythm. Negative for: Murmur Respiratory: Positive for: Normal Breath Sounds. Negative for: Respiratory Distress Gastrointestinal/Abdominal: Positive for: Other (left side leg raise positive due to previous diagnosis of diverticulitis) Back: Positive for: Other (eft side axial loading positive) Extremity: Positive for: Normal ROM. Negative for: Pedal Edema, Deformity Neurologic/Psych: Positive for: Alert, Oriented. Negative for: Motor/Sensory Deficits - Laboratory Results Result Diagrams: 04/20/18 20:21 04/20/18 20:21 - ECG ECG: Positive for: Interpreted By Me, Viewed By Me ECG Rhythm: Positive for: Normal QRS, Normal ST Segment, Sinus Rhythm Rate: 66 O2 Sat by Pulse Oximetry: 99 (RA) Pulse Ox Interpretation: Normal Medical Decision Making Medical Decision Making: Time: 1956 Impression: Lumbar Pain; r/o diverticulitis and abscess Plan: CT Abd & Pelvis IV Contrast CMP CBC Morphine 4 mg IVP IV Fluids Tylenol 650 mg PO Zofran 4 mg IVP Urine C&S Influenza A B \ CT SCAN RESULTS Lower thorax Unremarkable. Liver Unremarkable. No gross lesion or ductal dilatation. Gallbladder and bile ducts Unremarkable. Pancreas Unremarkable. No gross lesion or ductal dilatation. Spleen Unremarkable. Adrenals Unremarkable. No mass. Kidneys and ureters There is also evidence of bilateral perinephric stranding, which is new since the prior study and may represent pyelonephritis. There is a 1.3 cm cyst present in the mid right kidney. No hydronephrosis. No solid mass. Vasculature Unremarkable. No aortic aneurysm. Bowel Not is made of gastric wall thickening suggestive of gastritis. Note is made of diffuse diverticulosis involving descending and sigmoid colon. There is marked inflammatory stranding present adjacent to the distal descending colon and proximal sigmoid consistent with diverticulitis, which has progressed since the prior study with exacerbation of inflammatory process. There is apparent phlegmon formation but no evidence of abscess. No evidence of free air. Appendix Normal appendix. Peritoneum Unremarkable. No free fluid. No free air. Lymph nodes Unremarkable. No enlarged lymph nodes. Bladder There is bladder wall thickening noted measuring up to 6 mm consistent with cystitis. This represents exacerbation since the prior study. Reproductive Prostate gland is moderately enlarged and contains dense central calcifications. Bones No acute fracture. Other Findings None. Impression Acute diverticulitis as above. Inflammation has progressed since the prior study. No evidence of free air at this time. Findings consistent with cystitis and evolving bilateral pyelonephritis. 2254- As result of progressive diverticulitis and pyelonephritis, blood cultures (x2) ordered, pt started on zosyn IV, fluid therapy Consult with Dr Green, hospitalist, regarding admission 2256- Pt will be admitted under Dr Green's service; Bridge orders entered to ensure smooth transition of care Scribe Attestation: Documented by Bernard Torre, acting as a scribe for CORDELL Burns. Provider Scribe Attestation: All medical record entries made by the Scribe were at my direction and personally dictated by me. I have reviewed the chart and agree that the record accurately reflects my personal performance of the history, physical exam, m edical decision making, and the department course for this patient. I have also personally directed, reviewed, and agree with the discharge instructions and disposition. Disposition - Clinical Impression Clinical Impression: Pyelonephritis, Diverticulitis - Patient ED Disposition Is Patient to be Admitted: Yes Discussed With : Ernesto Spencer Doctor Will See Patient In The: Hospital Counseled Patient/Family Regarding: Studies Performed, Diagnosis, Need For Followup - Disposition Disposition Time: 23:28 Condition: STABLE Forms: [employer] (Indonesian) - Pt Status Changed To: Hospital Disposition Of: Inpatient - Admit Certification Admit to Inpatient:: After my assessment, the patient will require hospitalization for at least two midnights. This is because of the severity of symptoms shown, intensity of services needed, and/or the medical risk in this patient being treated as an outpatient.
[2018-04-20] MEDS ORDERED: Sodium Chloride 0.9% 1,000 ML IV ONE ×2 (19:57→22:44)
[2018-04-20] MEDS ORDERED: Morphine 4 MG/ML VIAL IVP ONE (19:57)
[2018-04-20] MEDS ORDERED: Morphine 4 MG/ML VIAL ONE (20:15)
[2018-04-20 20:44] LABS: BASO # 0.1 K/uL (0.0-0.2); BASO % 0.5 % (0.0-2.0); EOS # 0.1 K/uL (0.0-0.7); EOS % 1.4 % (0.0-4.0); HEMOGLOBIN 13.6 g/dL (12.0-18.0); LYMPH # 1.5 K/uL (1.0-4.3); LYMPH % 14.5 % (20.0-40.0); MEAN CELL VOLUME 85.7 fl (80.0-94.0); MEAN CORPUSCULAR HEMOGLOBIN 28.4 pg (27.0-31.0); MEAN CORPUSCULAR HGB CONC 33.2 g/dL (33.0-37.0); MEAN PLATELET VOLUME 8.3 fl (7.2-11.7); MONO # 1.4 K/uL (0.0-0.8); NEUT # 7.2 K/uL (1.8-7.0); NEUT % 69.6 % (50.0-75.0); RBC 4.79 Mil/uL (4.40-5.90); RED CELL DISTRIBUTION WIDTH 12.7 % (11.5-14.5); WHITE BLOOD COUNT 10.3 K/uL (4.8-10.8)
[2018-04-20 21:05] LABS: ALB/GLOB RATIO 1.2 (1.0-2.1); ALBUMIN 4.4 g/dL (3.5-5.0); ALT/SGPT 40 U/L (21-72); AST/SGOT 32 U/L (17-59); BLOOD UREA NITROGEN 24 mg/dl (9-20); CALCIUM 9.3 mg/dL (8.4-10.2); GFR NON-AFRICAN AMERICAN 50; SQUAMOUS EPITHIAL < 1 /hpf (0-5); URINE AMORPHOUS SEDIMENT RARE /ul (<OCC); URINE BACTERIA RARE (<OCC); URINE BILIRUBIN NEGATIVE (NEGATIVE); URINE BLOOD SMALL (NEGATIVE); URINE CLARITY SLIGHTY-CLOUDY (Clear); URINE COLOR YELLOW (YELLOW); URINE GLUCOSE (UA) NEG (NEGATIVE); URINE HYALINE CAST 0-2 /hpf (0-2); URINE LEUKOCYTE ESTERASE TRACE Leu/uL (Negative); URINE PROTEIN 100 mg/dL (NEGATIVE); URINE UROBILINOGEN 0.2-1.0 mg/dL (0.2-1.0)
[2018-04-20] MEDS ORDERED: Iodixanol 320 MG/ML 100 ML BOTTLE IV ONE (21:19)
[2018-04-20] MEDS ORDERED: Sodium Chloride 0.9% 50 ML IV ONE (21:19)
[2018-04-20] MEDS ORDERED: Piperacillin/Tazobact 3.375 GM in Sodium Chloride 0.9% 100 ML IVPB STA (22:42)
[2018-04-20] MEDS ORDERED: Piperacillin/Tazobact 3.375 gm Inj IVPB ONE (22:46)
--- NOTE | 2018-04-21 00:11 | CP.PCM.HP ---
<Sultan Bernardo - Last Filed: 04/21/18 00:37> History of Present Illness - History of Present Illness History of Present Illness: CC: lower back pain HPI: 47 year old Male with PMHx diverticulitis presented to [facility] ED with complaints of B/L lower back pain since yesterday associated with dysuria and urinary frequency. Patient reports pain as 6/10, aching and worse with movement. Denies any trauma to back. Patient also reports LLQ abdominal pain. Of note, patient was discharged from [facility] ED on 04/13/18 with diagnosis of acute diverticulitis with PO cipro and flagyl. Patient reports he has been taking his medications as directed. Reports intermittent nausea today but denies any vomiting, diarrhea, constipation, dark or bloody stool. Last BM this morning. Patient denies any fever, chills, dizziness or hematuria. Denies any hx UTI in the past. Reports last flare up of diverticulitis was 9 years ago. In the ED, CT A/P shows worsening diverticulitis with apparent phlegmon formation but no evidence of abscess. CT also shows B/L perinephric stranding but no hydronephrosis. Patient is admitted for acute diverticulitis due to failed outpatient treatment and suspected complicated UTI. ROS: All 12 systems reviewed and negative except as mentioned in HPI PMD: Dr. Pearson PMHx: Diverticulitis Surgical hx: Denies Social hx: Denies smoking cigarettes, drinking EtOH or using drugs Family hx: Mother DMII Allergies: NKDA Medications: reviewed Present on Admission - Present on Admission Any Indicators Present on Admission: No Review of Systems - Review of Systems Review of Systems: All 12 systems reviewed and negative except as mentioned in HPI Past Patient History - Past Social History Smoking Status: Never Smoked - GASTROINTESTINAL Hx Diverticulitis: Yes - PSYCHIATRIC Hx Psychophysiologic Disorder: No Hx Substance Use: No - SURGICAL HISTORY Hx Surgeries: No - ANESTHESIA Hx Anesthesia: No Meds Allergies/Adverse Reactions: Allergies Allergy/AdvReac Type Severity Reaction Status Date / Time No Known Allergies Allergy Verified 04/20/18 19:24 Physical Exam - Constitutional Appears: No Acute Distress - Head Exam Head Exam: NORMAL INSPECTION - Eye Exam Eye Exam: Normal appearance - ENT Exam ENT Exam: Mucous Membranes Moist, Normal Oropharynx - Neck Exam Neck exam: Positive for: Normal Inspection - Respiratory Exam Respiratory Exam: Clear to Auscultation Bilateral, NORMAL BREATHING PATTERN. absent: Rhonchi, Wheezes - Cardiovascular Exam Cardiovascular Exam: REGULAR RHYTHM, +S1, +S2 - GI/Abdominal Exam GI & Abdominal Exam: Normal Bowel Sounds, Soft. absent: Distended, Guarding, Rebound, Rigid Additional comments: Moderate left LLQ tenderness. No rebound, guarding or rigidity. - Extremities Exam Extremities exam: Positive for: normal inspection. Negative for: calf tenderness - Back Exam Back exam: CVA tenderness (L) (Minimal ), NORMAL INSPECTION. absent: CVA tenderness (R), vertebral tenderness - Neurological Exam Neurological exam: Alert, Oriented x3 - Psychiatric Exam Psychiatric exam: Normal Affect, Normal Mood - Skin Skin Exam: Normal Color Results - Vital Signs Recent Vital Signs: Last Vital Signs Temp 98.3 F 04/20/18 23:00 Pulse 66 04/20/18 23:28 Resp 16 04/20/18 23:00 BP 132/76 04/20/18 23:00 Pulse Ox 99 04/20/18 23:28 - Labs Result Diagrams: 04/20/18 20:21 04/20/18 20:21 Labs: Laboratory Results - last 24 hr 04/20/18 04/20/18 04/20/18 20:21 20:21 20:21 WBC 10.3 RBC 4.79 Hgb 13.6 Hct 41.0 MCV 85.7 MCH 28.4 MCHC 33.2 RDW 12.7 Plt Count 296 MPV 8.3 Neut % (Auto) 69.6 Lymph % (Auto) 14.5 L [place] % (Auto) 14.0 H Eos % (Auto) 1.4 Baso % (Auto) 0.5 Neut # (Auto) 7.2 H Lymph # (Auto) 1.5 [place] # (Auto) 1.4 H Eos # (Auto) 0.1 Baso # (Auto) 0.1 Sodium 141 Potassium 4.0 Chloride 101 Carbon Dioxide 24 Anion Gap 20 BUN 24 H Creatinine 1.5 Est GFR ( Amer) > 60 Est GFR (Non-Af Amer) 50 Random Glucose 90 Calcium 9.3 Total Bilirubin 0.4 AST 32 ALT 40 Alkaline Phosphatase 69 Total Protein 7.9 Albumin 4.4 Globulin 3.6 Albumin/Globulin Ratio 1.2 Urine Color Urine Clarity Urine pH Ur Specific [place] Urine Protein Urine Glucose (UA) Urine Ketones Urine Blood Urine Nitrate Urine Bilirubin Urine Urobilinogen Ur Leukocyte Esterase Urine RBC (Auto) Urine Microscopic WBC Ur Squamous Epith Cells Amorphous Sediment Urine Bacteria Hyaline Casts Influenza Typ A,B (EIA) Negative for flu a/b 04/20/18 20:21 WBC RBC Hgb Hct MCV MCH MCHC RDW Plt Count MPV Neut % (Auto) Lymph % (Auto) [place] % (Auto) Eos % (Auto) Baso % (Auto) Neut # (Auto) Lymph # (Auto) [place] # (Auto) Eos # (Auto) Baso # (Auto) Sodium Potassium Chloride Carbon Dioxide Anion Gap BUN Creatinine Est GFR ( Amer) Est GFR (Non-Af Amer) Random Glucose Calcium Total Bilirubin AST ALT Alkaline Phosphatase Total Protein Albumin Globulin Albumin/Globulin Ratio Urine Color Yellow Urine Clarity Slighty-cloudy Urine pH 6.0 Ur Specific [place] 1.010 Urine Protein 100 Urine Glucose (UA) Neg Urine Ketones Negative Urine Blood Small Urine Nitrate Negative Urine Bilirubin Negative Urine Urobilinogen 0.2-1.0 Ur Leukocyte Esterase Trace Urine RBC (Auto) 3 Urine Microscopic WBC 2 Ur Squamous Epith Cells < 1 Amorphous Sediment Rare H Urine Bacteria Rare Hyaline Casts 0-2 Influenza Typ A,B (EIA) Assessment & Plan - Assessment and Plan (Free Text) Assessment: 47 year old Male with PMHx diverticulitis presented to [facility] ED with complaints of B/L lower back pain since yesterday associated with dysuria and urinary frequency. Patient reports pain as 6/10, aching and worse with movement. Patient also reports LLQ abdominal pain. Of note, patient was discharged from [facility] ED on 04/13/18 with acute diverticulitis with cipro and flagyl PO. In the ED, CT A/P shows worsening diverticulitis with apparent phlegmon formation but no evidence of abscess. CT also shows B/L perinephric stranding but no hydronephrosis. Patient is admitted for acute diverticulitis due to failed outpatient treatment and suspected complicated UTI. Plan: Acute diverticulitis with apparent phlegmon formation -Admit for Med/surg due to failed outpatient treatment -CT A/P: worsening diverticulitis involving distal descending color and proximal sigmoid colon with apparent phlegmon formation but no evidence of abscess. -Afebrile with stable vitals -WBC 10.3 -s/p Zosyn 3.375 gm and 1.5 L NS IVFs in ED -c/w zosyn 3.375 gm q6 hrs -NPO except meds -Pain management -Consider GI/general surgery consult in AM -f/u AM labs Acute complicated UTI -UA shows trace leuk and small blood -CT A/P shows B/L perinephric stranding, which may represent pyelonephritis -Afebrile with no wbc elevation -c/w Zosyn 3.375 gm q6hrs DVT prophylaxis -Lovenox 40 mg sc daily (patient denies any GI bleeding) -SCDs GI prophylaxis -Protonix 40 mg po daily Code status -Full code Plan discussed with Dr. Johanna Chang, [id number] <Ernesto Spencer - Last Filed: 04/21/18 02:11> Results - Vital Signs Recent Vital Signs: Last Vital Signs Temp 98.3 F 04/20/18 23:00 Pulse 66 04/21/18 02:04 Resp 16 04/20/18 23:00 BP 132/76 04/20/18 23:00 Pulse Ox 99 04/20/18 23:28 - Labs Result Diagrams: 04/20/18 20:21 04/20/18 20:21 Labs: Laboratory Results - last 24 hr 04/20/18 04/20/18 04/20/18 20:21 20:21 20:21 WBC 10.3 RBC 4.79 Hgb 13.6 Hct 41.0 MCV 85.7 MCH 28.4 MCHC 33.2 RDW 12.7 Plt Count 296 MPV 8.3 Neut % (Auto) 69.6 Lymph % (Auto) 14.5 L [place] % (Auto) 14.0 H Eos % (Auto) 1.4 Baso % (Auto) 0.5 Neut # (Auto) 7.2 H Lymph # (Auto) 1.5 [place] # (Auto) 1.4 H Eos # (Auto) 0.1 Baso # (Auto) 0.1 Sodium 141 Potassium 4.0 Chloride 101 Carbon Dioxide 24 Anion Gap 20 BUN 24 H Creatinine 1.5 Est GFR ( Amer) > 60 Est GFR (Non-Af Amer) 50 Random Glucose 90 Calcium 9.3 Total Bilirubin 0.4 AST 32 ALT 40 Alkaline Phosphatase 69 Total Protein 7.9 Albumin 4.4 Globulin 3.6 Albumin/Globulin Ratio 1.2 Urine Color Urine Clarity Urine pH Ur Specific [place] Urine Protein Urine Glucose (UA) Urine Ketones Urine Blood Urine Nitrate Urine Bilirubin Urine Urobilinogen Ur Leukocyte Esterase Urine RBC (Auto) Urine Microscopic WBC Ur Squamous Epith Cells Amorphous Sediment Urine Bacteria Hyaline Casts Influenza Typ A,B (EIA) Negative for flu a/b 04/20/18 20:21 WBC RBC Hgb Hct MCV MCH MCHC RDW Plt Count MPV Neut % (Auto) Lymph % (Auto) [place] % (Auto) Eos % (Auto) Baso % (Auto) Neut # (Auto) Lymph # (Auto) [place] # (Auto) Eos # (Auto) Baso # (Auto) Sodium Potassium Chloride Carbon Dioxide Anion Gap BUN Creatinine Est GFR ( Amer) Est GFR (Non-Af Amer) Random Glucose Calcium Total Bilirubin AST ALT Alkaline Phosphatase Total Protein Albumin Globulin Albumin/Globulin Ratio Urine Color Yellow Urine Clarity Slighty-cloudy Urine pH 6.0 Ur Specific [place] 1.010 Urine Protein 100 Urine Glucose (UA) Neg Urine Ketones Negative Urine Blood Small Urine Nitrate Negative Urine Bilirubin Negative Urine Urobilinogen 0.2-1.0 Ur Leukocyte Esterase Trace Urine RBC (Auto) 3 Urine Microscopic WBC 2 Ur Squamous Epith Cells < 1 Amorphous Sediment Rare H Urine Bacteria Rare Hyaline Casts 0-2 Influenza Typ A,B (EIA) Assessment & Plan - Assessment and Plan (Free Text) Plan: History as documented by resident was reviewed with patient and resident. I personally performed the murphy elements of physical exam and agree with the above findings. Diagnostics reviewed. X-ray and EKG as above interpreted by me. Medical decision making and plan of care performed by me. 47 yo male failed out patient treatment for diverticulitis. Basically p/w worsening pain and CT showed worsening of diverticulitis with phlegmon formation. On exam has tenderness and guarding most prominent on LLQ. Agree with IV Zosyn. NPO for now and can advance diet as symptomatically improves. IV morphine as needed for pain. - Date & Time Date: 04/20/18 Time: 21:00
[2018-04-21 00:40] VITALS: BMI 25.4
[2018-04-21] MEDS: Potassium Ch 20mEq in D5-1/2NS 1,000 ML IV SCH ×2 (01:48→09:07)
[2018-04-21] MEDS ORDERED: Pneumococcal 23-Valent Vaccine IM ONE (02:51)
[2018-04-21] MEDS: Piperacillin/Tazobact 3.375 GM in Sodium Chloride 0.9% 100 ML IVPB SCH ×4 (04:11→21:49)
[2018-04-21 06:11] LABS: BASO % 0.2 % (0.0-2.0); EOS # 0.1 K/uL (0.0-0.7); EOS % 0.7 % (0.0-4.0); HEMOGLOBIN 11.7 g/dL (12.0-18.0); LYMPH # 1.4 K/uL (1.0-4.3); LYMPH % 17.6 % (20.0-40.0); MEAN CELL VOLUME 85.4 fl (80.0-94.0); MEAN CORPUSCULAR HEMOGLOBIN 28.2 pg (27.0-31.0); MEAN PLATELET VOLUME 8.1 fl (7.2-11.7); MONO # 1.2 K/uL (0.0-0.8); MONO % 14.6 % (0.0-10.0); NEUT # 5.4 K/uL (1.8-7.0); NEUT % 66.9 % (50.0-75.0); RBC 4.14 Mil/uL (4.40-5.90); WHITE BLOOD COUNT 8.1 K/uL (4.8-10.8)
[2018-04-21 06:23] LABS: ALBUMIN 3.1 g/dL (3.5-5.0); ALT/SGPT 39 U/L (21-72); AST/SGOT 26 U/L (17-59); BLOOD UREA NITROGEN 18 mg/dl (9-20); CALCIUM 8.2 mg/dL (8.4-10.2); GFR NON-AFRICAN AMERICAN 50
[2018-04-21] MEDS: Enoxaparin 40 mg Syringe SC SCH (09:02)
[2018-04-21] MEDS: Pantoprazole 40 mg EC Tab PO SCH (09:05)
--- NOTE | 2018-04-21 09:51 | CP.PCM.PN ---
<Nas WolfJanett - Last Filed: 04/21/18 10:08> Subjective - Date & Time of Evaluation Date of Evaluation: 04/21/18 Time of Evaluation: 07:55 - Subjective Subjective: Patient seen and examined this AM, in NAD. Patient admitted for acute diverticulitis with apparent phlegmon formation, pending final CT report. Patient was started on Zosyn IV yesterday, today day 2. Patient states feeling better, less lower back pain, patient explains to me that is the first time the pain is located more in the back that in the front LLQ-hypogastric area. Patient endorses he has had 4 episodes of diverticultis in 10 years, he usually suffers from constipation. Patient today c/o ongoing tenesmus since this episode started, denies fever, N/V, or other acute medical complaint. Objective - Vital Signs/Intake and Output Vital Signs (last 24 hours): Temp Pulse Resp BP Pulse Ox 98.3 F 61 18 112/70 95 04/21/18 07:56 04/21/18 07:56 04/21/18 07:56 04/21/18 07:56 04/21/18 07:56 - Medications Medications: Current Medications Acetaminophen (Tylenol 325mg Tab) 650 mg PO Q6 PRN PRN Reason: Pain, Mild (1-3) Acetaminophen (Tylenol 325mg Tab) 650 mg PO Q6 PRN PRN Reason: Fever >100.4 F Enoxaparin Sodium (Lovenox) 40 mg SC DAILY [facility]; Protocol Last Admin: 04/21/18 09:02 Dose: 40 mg Potassium Chloride/Dextrose/Sod Cl (Potassium Chl 20 Meq In D5-1/2ns) 1,000 mls @ 100 mls/hr IV .Q10H [facility] Last Admin: 04/21/18 09:07 Dose: 100 mls/hr Piperacillin Sod/Tazobactam (Sod 3.375 gm/ Sodium Chloride) 100 mls @ 100 mls/hr IVPB Q6 [facility]; Protocol Last Admin: 04/21/18 09:05 Dose: 100 mls/hr Morphine Sulfate (Morphine) 1 mg IVP Q4 PRN PRN Reason: Pain, moderate (4-7) Last Admin: 04/21/18 06:55 Dose: 1 mg Ondansetron HCl (Zofran Inj) 4 mg IVP Q6 PRN PRN Reason: Nausea/Vomiting Pantoprazole Sodium (Protonix Ec Tab) 40 mg PO DAILY [facility] Last Admin: 04/21/18 09:05 Dose: 40 mg Sennosides (Senokot Tab) 17.2 mg PO HS [facility] - Labs Labs: 04/21/18 05:05 04/21/18 05:05 - Additional Findings Additional findings: Constitutional Appears: No Acute Distress - Head Exam Head Exam: NORMAL INSPECTION - Eye Exam Eye Exam: Normal appearance - ENT Exam ENT Exam: Mucous Membranes Moist, Normal Oropharynx - Neck Exam Neck exam: Positive for: Normal Inspection - Respiratory Exam Respiratory Exam: Clear to Auscultation Bilateral, NORMAL BREATHING PATTERN. absent: Rhonchi, Wheezes - Cardiovascular Exam Cardiovascular Exam: REGULAR RHYTHM, +S1, +S2 - GI/Abdominal Exam GI & Abdominal Exam: Normal Bowel Sounds, Soft. absent: Distended, Guarding, Rebound, Rigid Additional comments: Moderate left LLQ tenderness. No rebound, guarding or rigidity. - Extremities Exam Extremities exam: Positive for: normal inspection. Negative for: calf tenderness - Back Exam Back exam: CVA tenderness (L) (Minimal ), NORMAL INSPECTION. absent: CVA tenderness (R), vertebral tenderness - Neurological Exam Neurological exam: Alert, Oriented x3 - Psychiatric Exam Psychiatric exam: Normal Affect, Normal Mood - Skin Skin Exam: Normal Color Assessment and Plan - Assessment and Plan (Free Text) Assessment: 47 year old Male with PMHx diverticulitis presented to [facility] ED with complaints of B/L lower back pain since yesterday associated with dysuria and urinary frequency. Patient reports pain as 6/10, aching and worse with movement. Patient also reports LLQ abdominal pain. Of note, patient was discharged from [facility] ED on 04/13/18 with acute diverticulitis with cipro and flagyl PO. In the ED, CT A/P shows worsening diverticulitis with apparent phlegmon formation but no evidence of abscess. CT also shows B/L perinephric stranding but no hydronephrosis. Patient is admitted for acute diverticulitis due to failed outpatient treatment and suspected complicated UTI. Plan: Acute diverticulitis with apparent phlegmon formation -Admit for Med/surg due to failed outpatient treatment -CT A/P: worsening diverticulitis involving distal descending color and proximal sigmoid colon with apparent phlegmon formation but no evidence of abscess. Will f/u CT final report -Afebrile with stable vitals -WBC 8.1 -c/w zosyn 3.375 gm q6 hrs -NPO except meds -Pain management -GI cosult Dr Neumann, recomms appreciated Acute complicated UTI less likely vs diverticulitis -UA shows trace leuk and small blood -CT A/P shows B/L perinephric stranding, which may represent pyelonephritis -Afebrile with no wbc elevation -c/w Zosyn 3.375 gm q6hrs DVT prophylaxis -Lovenox 40 mg sc daily (patient denies any GI bleeding) -SCDs GI prophylaxis -Protonix 40 mg po daily Code status -Full code <Isabella Schroeder - Last Filed: 04/21/18 16:53> Objective - Vital Signs/Intake and Output Vital Signs (last 24 hours): Temp Pulse Resp BP Pulse Ox 98 F 58 L 16 116/96 H 96 04/21/18 16:26 04/21/18 16:26 04/21/18 16:26 04/21/18 16:26 04/21/18 16:26 - Medications Medications: Current Medications Acetaminophen (Tylenol 325mg Tab) 650 mg PO Q6 PRN PRN Reason: Pain, Mild (1-3) Acetaminophen (Tylenol 325mg Tab) 650 mg PO Q6 PRN PRN Reason: Fever >100.4 F Enoxaparin Sodium (Lovenox) 40 mg SC DAILY [facility]; Protocol Last Admin: 04/21/18 09:02 Dose: 40 mg Potassium Chloride/Dextrose/Sod Cl (Potassium Chl 20 Meq In D5-1/2ns) 1,000 mls @ 100 mls/hr IV .Q10H [facility] Last Admin: 04/21/18 09:07 Dose: 100 mls/hr Piperacillin Sod/Tazobactam (Sod 3.375 gm/ Sodium Chloride) 100 mls @ 100 mls/hr IVPB Q6 [facility]; Protocol Last Admin: 04/21/18 16:43 Dose: 100 mls/hr Morphine Sulfate (Morphine) 1 mg IVP Q4 PRN PRN Reason: Pain, moderate (4-7) Last Admin: 04/21/18 06:55 Dose: 1 mg Ondansetron HCl (Zofran Inj) 4 mg IVP Q6 PRN PRN Reason: Nausea/Vomiting Pantoprazole Sodium (Protonix Ec Tab) 40 mg PO DAILY [facility] Last Admin: 04/21/18 09:05 Dose: 40 mg Sennosides (Senokot Tab) 17.2 mg PO HS [facility] - Labs Labs: 04/21/18 05:05 04/21/18 05:05 Attending/Attestation - Attestation I have personally seen and examined this patient.: Yes I have fully participated in the care of the patient.: Yes I have reviewed all pertinent clinical information, including history, physical exam and plan: Yes Notes (Text): Acute Diverticulitis ? Pyelonephritis seen on CT -pt failed outpt treatment , he took antibiotics Cipro and Flagyl x 1 wk however abd pain persisted -cont IV Zosyn - Blood and Urine c/s - start Clear Liquid diet - Outpt Colonoscopy in 1 month
--- NOTE | 2018-04-21 11:03 | CT ---
Date of service: 04/20/2018 PROCEDURE: CT Abdomen and Pelvis with contrast HISTORY: r/o progressive diverticulitis COMPARISON: 04/13/2018. TECHNIQUE: CT scan of the abdomen and pelvis was performed after administration of intravenous contrast. Oral contrast was not administered. Coronal and sagittal reformatted images were obtained. Contrast dose: 90 mL Visipaque 320 Radiation dose: Total exam DLP = 412.75 mGy-cm. This CT exam was performed using one or more of the following dose reduction techniques: Automated exposure control, adjustment of the mA and/or kV according to patient size, and/or use of iterative reconstruction technique. FINDINGS: LOWER THORAX: There is subsegmental atelectasis in the medial segment of the right middle lobe and in the lung bases. LIVER: Normal in size with homogeneous enhancement. Fatty liver. No gross lesion or ductal dilatation. GALLBLADDER AND BILE DUCTS: Well distended. No calcified gallstones, wall thickening or pericholecystic fluid. PANCREAS: Normal in size with homogeneous enhancement. No gross lesion or ductal dilatation. SPLEEN: Normal in size and appearance. ADRENALS: No discrete nodule. KIDNEYS AND URETERS: Normal in size with homogeneous enhancement. No hydronephrosis. No solid mass. There is a stable 1.8 x 1.0 cm simple cyst in the interpolar region of the right kidney. Are bilateral inflammatory changes VASCULATURE: No aortic aneurysm. There are no aortic atherosclerotic calcifications or mural plaque present. BOWEL: Evaluation of the bowel is limited in the absence of oral contrast. The small bowel loops are normal in caliber. There is left colonic diverticulosis. There is moderate circumferential mural thickening in the distal descending colon with surrounding pericolonic inflammatory changes. No micro perforation or abscess. There is persistent mild circumferential mural thickening in the sigmoid colon without significant surrounding inflammatory changes. No bowel obstruction. APPENDIX: Not visualized. No inflammatory changes in the right lower quadrant. PERITONEUM: No free fluid. No free air. LYMPH NODES: No enlarged lymph nodes. BLADDER: There is apparent moderate circumferential mural thickening in the urinary bladder wall, most conspicuous anteriorly. REPRODUCTIVE: The prostate gland is normal in size. BONES: No acute fracture. Within normal limits for the patient's age. OTHER FINDINGS: None. IMPRESSION: 1. Acute segmental diverticulitis involving the distal descending colon. No micro perforation or abscess. 2. Evolving bilateral pyelonephritis and cystitis. 3. Left colonic diverticulosis. Apparent mild circumferential mural thickening in the sigmoid colon is likely related to resolving diverticulitis, no evidence of acute diverticulitis in the sigmoid colon. A preliminary report was provided by [employer].
--- NOTE | 2018-04-21 14:46 | RAD ---
Date of service: 04/20/2018 HISTORY: admit COMPARISON: No prior. FINDINGS: LUNGS: The lungs are well inflated and clear. PLEURA: No pleural effusions or pneumothorax. CARDIOVASCULAR: The heart is normal in size. No aortic atherosclerotic calcifications present. OSSEOUS STRUCTURES: Within normal limits for the patient's age. VISUALIZED UPPER ABDOMEN: Normal. OTHER FINDINGS: None. IMPRESSION: No active pulmonary disease.
--- NOTE | 2018-04-21 18:26 | CARD ---
APPROVED REPORT Date of service: 04/20/2018 EKG Measurement Heart [id number] <Conclusion> Normal sinus rhythm Normal ECG
[2018-04-22] MEDS: Piperacillin/Tazobact 3.375 GM in Sodium Chloride 0.9% 100 ML IVPB SCH ×3 (03:05→15:50)
[2018-04-22 05:22] LABS: HEMOGLOBIN 11.2 g/dL (12.0-18.0); MEAN CELL VOLUME 85.6 fl (80.0-94.0); MEAN CORPUSCULAR HEMOGLOBIN 28.5 pg (27.0-31.0); MEAN CORPUSCULAR HGB CONC 33.3 g/dL (33.0-37.0); RBC 3.92 Mil/uL (4.40-5.90); RED CELL DISTRIBUTION WIDTH 12.8 % (11.5-14.5); WHITE BLOOD COUNT 5.6 K/uL (4.8-10.8)
[2018-04-22 05:33] LABS: ALT/SGPT 32 U/L (21-72); AST/SGOT 22 U/L (17-59); BLOOD UREA NITROGEN 13 mg/dl (9-20); CALCIUM 8.4 mg/dL (8.4-10.2); GFR NON-AFRICAN AMERICAN > 60
[2018-04-22] MEDS: Enoxaparin 40 mg Syringe SC SCH (10:01)
[2018-04-22] MEDS: Pantoprazole 40 mg EC Tab PO SCH (10:01)
--- NOTE | 2018-04-22 10:39 | CP.PCM.PN ---
Objective - Vital Signs/Intake and Output Vital Signs (last 24 hours): Temp Pulse Resp BP Pulse Ox 98.1 F 46 L 18 116/69 96 04/22/18 07:50 04/22/18 07:50 04/22/18 07:50 04/22/18 07:50 04/22/18 07:50 - Medications Medications: Current Medications Acetaminophen (Tylenol 325mg Tab) 650 mg PO Q6 PRN PRN Reason: Pain, Mild (1-3) Acetaminophen (Tylenol 325mg Tab) 650 mg PO Q6 PRN PRN Reason: Fever >100.4 F Enoxaparin Sodium (Lovenox) 40 mg SC DAILY [facility]; Protocol Last Admin: 04/22/18 10:01 Dose: 40 mg Piperacillin Sod/Tazobactam (Sod 3.375 gm/ Sodium Chloride) 100 mls @ 100 mls/hr IVPB Q6 [facility]; Protocol Last Admin: 04/22/18 10:01 Dose: 100 mls/hr Morphine Sulfate (Morphine) 1 mg IVP Q4 PRN PRN Reason: Pain, moderate (4-7) Last Admin: 04/21/18 06:55 Dose: 1 mg Ondansetron HCl (Zofran Inj) 4 mg IVP Q6 PRN PRN Reason: Nausea/Vomiting Pantoprazole Sodium (Protonix Ec Tab) 40 mg PO DAILY [facility] Last Admin: 04/22/18 10:01 Dose: 40 mg Sennosides (Senokot Tab) 17.2 mg PO HS [facility] Last Admin: 04/21/18 21:49 Dose: 17.2 mg - Labs Labs: 04/22/18 04:45 04/22/18 04:45
--- NOTE | 2018-04-22 11:09 | CP.PCM.DIS ---
<Janett Roca - Last Filed: 04/22/18 11:59> Provider - Provider Date of Admission: 04/20/18 22:52 Attending physician: Ernesto Spencer MD Consults: 04/21/18 07:48 Gastroenterology Consult Routine Comment: Consulting Provider: Boyd Neumann Consulting Physician: Boyd Neumann Reason for Consult: Diverticulitis Time Spent in preparation of Discharge (in minutes): 33 Diagnosis - Discharge Diagnosis (1) Pyelonephritis Status: Acute Priority: Low (2) Acute diverticulitis Status: Acute Priority: High Hospital Course - Lab Results Lab Results: Micro Results 04/20/18 20:21 Urine,Clean Catch Urine Culture - Final No Growth (<1,000 CFU/ML) 04/20/18 23:01 Blood-Venous Blood Culture - Preliminary NO GROWTH AFTER 24 HOURS 04/20/18 22:40 Blood-Venous Blood Culture - Preliminary NO GROWTH AFTER 24 HOURS Most Recent Lab Values WBC 5.6 K/uL (4.8-10.8) 04/22/18 04:45 RBC 3.92 Mil/uL (4.40-5.90) L 04/22/18 04:45 Hgb 11.2 g/dL (12.0-18.0) L 04/22/18 04:45 Hct 33.6 % (35.0-51.0) L 04/22/18 04:45 MCV 85.6 fl (80.0-94.0) 04/22/18 04:45 MCH 28.5 pg (27.0-31.0) 04/22/18 04:45 MCHC 33.3 g/dL (33.0-37.0) 04/22/18 04:45 RDW 12.8 % (11.5-14.5) 04/22/18 04:45 Plt Count 263 K/uL (130-400) 04/22/18 04:45 MPV 8.1 fl (7.2-11.7) 04/21/18 05:05 Neut % (Auto) 66.9 % (50.0-75.0) 04/21/18 05:05 Lymph % (Auto) 17.6 % (20.0-40.0) L 04/21/18 05:05 Sully % (Auto) 14.6 % (0.0-10.0) H 04/21/18 05:05 Eos % (Auto) 0.7 % (0.0-4.0) 04/21/18 05:05 Baso % (Auto) 0.2 % (0.0-2.0) 04/21/18 05:05 Neut # (Auto) 5.4 K/uL (1.8-7.0) 04/21/18 05:05 Lymph # (Auto) 1.4 K/uL (1.0-4.3) 04/21/18 05:05 Sully # (Auto) 1.2 K/uL (0.0-0.8) H 04/21/18 05:05 Eos # (Auto) 0.1 K/uL (0.0-0.7) 04/21/18 05:05 Baso # (Auto) 0.0 K/uL (0.0-0.2) 04/21/18 05:05 Sodium 142 mmol/l (132-148) 04/22/18 04:45 Potassium 4.0 MMOL/L (3.6-5.0) 04/22/18 04:45 Chloride 111 mmol/L (98-107) H 04/22/18 04:45 Carbon Dioxide 25 mmol/L (22-30) 04/22/18 04:45 Anion Gap 10 (10-20) 04/22/18 04:45 BUN 13 mg/dl (9-20) 04/22/18 04:45 Creatinine 1.1 mg/dl (0.8-1.5) 04/22/18 04:45 Est GFR ( Amer) > 60 04/22/18 04:45 Est GFR (Non-Af Amer) > 60 04/22/18 04:45 Random Glucose 104 mg/dL (75-110) 04/22/18 04:45 Calcium 8.4 mg/dL (8.4-10.2) 04/22/18 04:45 Total Bilirubin 0.3 mg/dl (0.2-1.3) 04/22/18 04:45 AST 22 U/L (17-59) 04/22/18 04:45 ALT 32 U/L (21-72) 04/22/18 04:45 Alkaline Phosphatase 44 U/L (38-126) 04/22/18 04:45 Total Protein 6.2 G/DL (6.3-8.2) L 04/22/18 04:45 Albumin 3.0 g/dL (3.5-5.0) L 04/22/18 04:45 Globulin 3.2 gm/dL (2.2-3.9) 04/22/18 04:45 Albumin/Globulin Ratio 1.0 (1.0-2.1) 04/22/18 04:45 Urine Color Yellow (YELLOW) 04/20/18 20:21 Urine Clarity Slighty-cloudy (Clear) 04/20/18 20:21 Urine pH 6.0 (5.0-8.0) 04/20/18 20:21 Ur Specific [place] 1.010 (1.003-1.030) 04/20/18 20:21 Urine Protein 100 mg/dL (NEGATIVE) 04/20/18 20:21 Urine Glucose (UA) Neg mg/dL (NEGATIVE) 04/20/18 20:21 Urine Ketones Negative mg/dL (NEGATIVE) 04/20/18 20:21 Urine Blood Small (NEGATIVE) 04/20/18 20:21 Urine Nitrate Negative (NEGATIVE) 04/20/18 20:21 Urine Bilirubin Negative (NEGATIVE) 04/20/18 20:21 Urine Urobilinogen 0.2-1.0 mg/dL (0.2-1.0) 04/20/18 20:21 Ur Leukocyte Esterase Trace Quita/uL (Negative) 04/20/18 20:21 Urine RBC (Auto) 3 /hpf (0-3) 04/20/18 20:21 Urine Microscopic WBC 2 /hpf (0-5) 04/20/18 20:21 Ur Squamous Epith Cells < 1 /hpf (0-5) 04/20/18 20:21 Amorphous Sediment Rare /ul (<OCC) H 04/20/18 20:21 Urine Bacteria Rare (<OCC) 04/20/18 20:21 Hyaline Casts 0-2 /hpf (0-2) 04/20/18 20:21 Influenza Typ A,B (EIA) Negative for flu a/b (NEGATIVE) 04/20/18 20:21 - Hospital Course Hospital Course: 47 y/o male with PMH of several episodes of diverticulitis in the last 10 years, who presented with c/o LLQ pain and Left lower back pain and admitted with diagnosis of Diverticultis vs pyelonephritis. Patient was discharged from [facility] ED on 04/13/18 with acute diverticulitis with cipro and flagyl PO and failed outpatient treatement. During Hospital course patient recived treatment with IVF, clear liquid diet, Zosyn IV. Patient has shown significnat improvement with improvement of the LLQ pain and resolution of back pain. CT scan was done showed acute diverticultis, no abscess or perforation. Urine culture no growth after 24 hrs. Patient today is doing well, had normal BM, remains afebrile, denies pain at this time. Patient is for discharge home with outpatient follow up within a week at [facility] and with F/u with GI for colonoscopy once acute episode completely resolved. Patient has never had a colonoscopy done. Patient instructed to continue with soft diet, PO Antibx Flagyl and Augmentin and probiotics while on antibx. Discharge Exam - Head Exam Head Exam: NORMAL INSPECTION - Additional Findings Additional findings: - Additional Findings Additional findings: Constitutional Appears: No Acute Distress - Head Exam Head Exam: NORMAL INSPECTION - Eye Exam Eye Exam: Normal appearance - ENT Exam ENT Exam: Mucous Membranes Moist, Normal Oropharynx - Neck Exam Neck exam: Positive for: Normal Inspection - Respiratory Exam Respiratory Exam: Clear to Auscultation Bilateral, NORMAL BREATHING PATTERN. absent: Rhonchi, Wheezes - Cardiovascular Exam Cardiovascular Exam: REGULAR RHYTHM, +S1, +S2 - GI/Abdominal Exam GI & Abdominal Exam: Normal Bowel Sounds, Soft. absent: Distended, Guarding, Rebound, Rigid Additional comments: Mild left LLQ tenderness. No rebound, guarding or rigidity. - Extremities Exam Extremities exam: Positive for: normal inspection. Negative for: calf tenderness - Back Exam Back exam: CVA tenderness (L) (Minimal ), NORMAL INSPECTION. absent: CVA tenderness (R), vertebral tenderness - Neurological Exam Neurological exam: Alert, Oriented x3 - Psychiatric Exam Psychiatric exam: Normal Affect, Normal Mood - Skin Skin Exam: Normal Color Discharge Plan - Discharge Medications Prescriptions: Amoxicillin/Clavulanate [Augmentin 875 MG-125 MG] 1 tab PO Q12H #20 tab Lactobacillus Acidophilus [Bacid Acidophilus] 1 cap PO BID 30 Days #60 cap Metronidazole [Flagyl] 500 mg PO Q8H #30 tablet - Follow Up Plan Condition: STABLE Disposition: HOME/ ROUTINE Patient education suggested?: Yes Instructions: Diverticulitis (DC) Additional Instructions: Patient instructions: Follow with your PMD or [facility] [address] [place] [address] within 1 week Follow up with Gastroenterology Dr Neumann ED precautions: Return to the ED if your condition recurs, or you have recurrence of abdominal pain, fever, constipation, nausea, vomiting, urinary discomfort, blood in your urine or stools or any other new symptoms or concern presents Referrals: [facility] [Outside] Boyd Neumann MD, PhD [Staff Provider] - Silas Pearson MD [Staff Provider] - <Isabella Schroeder - Last Filed: 04/22/18 17:15> Provider - Provider Date of Admission: 04/20/18 22:52 Attending physician: Ernesto Spencer MD Consults: 04/21/18 07:48 Gastroenterology Consult Routine Comment: Consulting Provider: Boyd Neumann Consulting Physician: Boyd Neumann Reason for Consult: Diverticulitis Hospital Course - Lab Results Lab Results: Micro Results 04/20/18 20:21 Urine,Clean Catch Urine Culture - Final No Growth (<1,000 CFU/ML) 04/20/18 23:01 Blood-Venous Blood Culture - Preliminary NO GROWTH AFTER 24 HOURS 04/20/18 22:40 Blood-Venous Blood Culture - Preliminary NO GROWTH AFTER 24 HOURS Most Recent Lab Values WBC 5.6 K/uL (4.8-10.8) 04/22/18 04:45 RBC 3.92 Mil/uL (4.40-5.90) L 04/22/18 04:45 Hgb 11.2 g/dL (12.0-18.0) L 04/22/18 04:45 Hct 33.6 % (35.0-51.0) L 04/22/18 04:45 MCV 85.6 fl (80.0-94.0) 04/22/18 04:45 MCH 28.5 pg (27.0-31.0) 04/22/18 04:45 MCHC 33.3 g/dL (33.0-37.0) 04/22/18 04:45 RDW 12.8 % (11.5-14.5) 04/22/18 04:45 Plt Count 263 K/uL (130-400) 04/22/18 04:45 MPV 8.1 fl (7.2-11.7) 04/21/18 05:05 Neut % (Auto) 66.9 % (50.0-75.0) 04/21/18 05:05 Lymph % (Auto) 17.6 % (20.0-40.0) L 04/21/18 05:05 [place]ully % (Auto) 14.6 % (0.0-10.0) H 04/21/18 05:05 Eos % (Auto) 0.7 % (0.0-4.0) 04/21/18 05:05 Baso % (Auto) 0.2 % (0.0-2.0) 04/21/18 05:05 Neut # (Auto) 5.4 K/uL (1.8-7.0) 04/21/18 05:05 Lymph # (Auto) 1.4 K/uL (1.0-4.3) 04/21/18 05:05 [place] # (Auto) 1.2 K/uL (0.0-0.8) H 04/21/18 05:05 Eos # (Auto) 0.1 K/uL (0.0-0.7) 04/21/18 05:05 Baso # (Auto) 0.0 K/uL (0.0-0.2) 04/21/18 05:05 Sodium 142 mmol/l (132-148) 04/22/18 04:45 Potassium 4.0 MMOL/L (3.6-5.0) 04/22/18 04:45 Chloride 111 mmol/L (98-107) H 04/22/18 04:45 Carbon Dioxide 25 mmol/L (22-30) 04/22/18 04:45 Anion Gap 10 (10-20) 04/22/18 04:45 BUN 13 mg/dl (9-20) 04/22/18 04:45 Creatinine 1.1 mg/dl (0.8-1.5) 04/22/18 04:45 Est GFR ( Amer) > 60 04/22/18 04:45 Est GFR (Non-Af Amer) > 60 04/22/18 04:45 Random Glucose 104 mg/dL (75-110) 04/22/18 04:45 Calcium 8.4 mg/dL (8.4-10.2) 04/22/18 04:45 Total Bilirubin 0.3 mg/dl (0.2-1.3) 04/22/18 04:45 AST 22 U/L (17-59) 04/22/18 04:45 ALT 32 U/L (21-72) 04/22/18 04:45 Alkaline Phosphatase 44 U/L (38-126) 04/22/18 04:45 Total Protein 6.2 G/DL (6.3-8.2) L 04/22/18 04:45 Albumin 3.0 g/dL (3.5-5.0) L 04/22/18 04:45 Globulin 3.2 gm/dL (2.2-3.9) 04/22/18 04:45 Albumin/Globulin Ratio 1.0 (1.0-2.1) 04/22/18 04:45 Urine Color Yellow (YELLOW) 04/20/18 20:21 Urine Clarity Slighty-cloudy (Clear) 04/20/18 20:21 Urine pH 6.0 (5.0-8.0) 04/20/18 20:21 Ur Specific [place] 1.010 (1.003-1.030) 04/20/18 20:21 Urine Protein 100 mg/dL (NEGATIVE) 04/20/18 20:21 Urine Glucose (UA) Neg mg/dL (NEGATIVE) 04/20/18 20:21 Urine Ketones Negative mg/dL (NEGATIVE) 04/20/18 20:21 Urine Blood Small (NEGATIVE) 04/20/18 20:21 Urine Nitrate Negative (NEGATIVE) 04/20/18 20:21 Urine Bilirubin Negative (NEGATIVE) 04/20/18 20:21 Urine Urobilinogen 0.2-1.0 mg/dL (0.2-1.0) 04/20/18 20:21 Ur Leukocyte Esterase Trace Quita/uL (Negative) 04/20/18 20:21 Urine RBC (Auto) 3 /hpf (0-3) 04/20/18 20:21 Urine Microscopic WBC 2 /hpf (0-5) 04/20/18 20:21 Ur Squamous Epith Cells < 1 /hpf (0-5) 04/20/18 20:21 Amorphous Sediment Rare /ul (<OCC) H 04/20/18 20:21 Urine Bacteria Rare (<OCC) 04/20/18 20:21 Hyaline Casts 0-2 /hpf (0-2) 04/20/18 20:21 Influenza Typ A,B (EIA) Negative for flu a/b (NEGATIVE) 04/20/18 20:21 Attending/Attestation - Attestation I have personally seen and examined this patient.: Yes I have fully participated in the care of the patient.: Yes I have reviewed all pertinent clinical information, including history, physical exam and plan: Yes Notes (Text): Acute Diverticulitis - failed outpt tx with PO Cipro and Flagyl x 8 days - pt received IV Zosyn x 3 days - his abd pain resolved - no leukocytosis, no fever - will d/c home on PO Augmentin and Flagyl x 2 wks, Bacid - ff up with Dr Neumann for Outpt Colonoscopy
[2018-04-22 15:44] VITALS: BP 113/69; PULSE 50; RESP 20; TEMP 98.7; O2SAT 98
[2018-04-22] MEDS ORDERED: Lactobacillus Acidophilus 500 MU Cap PO SCH (17:00)
--- NOTE | 2018-04-25 08:22 | CON ---
DATE: 04/22/2018 REFERRING PHYSICIAN: . REASON FOR CONSULTATION: Diverticulitis. HISTORY OF PRESENT ILLNESS: This is a pleasant 47-year-old male with history of diverticulitis in the past. This is second episode. Pain started yesterday in the left lower quadrant. Now feels better. Tolerating clears. The pain is improving but is still there. Currently lying in bed comfortably in no apparent distress. PAST MEDICAL HISTORY: As above. PAST SURGICAL HISTORY: As above. MEDICATIONS: Have been reviewed. REVIEW OF SYSTEMS: All other systems have been reviewed and negative apart from the HPI. PHYSICAL EXAMINATION: VITAL SIGNS: Here in the hospital grossly unremarkable. GENERAL: This is a pleasant middle-aged male, lying in bed comfortably in no apparent distress. HEENT: Head: Normocephalic and atraumatic. Eyes: Pupils are equally reactive to light bilaterally. No conjunctival pallor or icterus. NECK: Supple. Normal range of motion. LUNGS: Coarse breath sounds bilaterally. HEART: S1 and S2. Regular rate and rhythm. No S3. ABDOMEN: Soft, nontender. Bowel sounds present. No rebound. No guarding. RECTAL: Deferred. EXTREMITIES: Pulses felt bilaterally. SKIN: Warm, dry, and intact. NEUROLOGIC: A and O x3. LABORATORY DATA: Labs and radiology have been reviewed. WBC 5.2, hemoglobin 11.2, hematocrit 33.6. CAT scan shows acute sigmoid diverticulitis. ASSESSMENT AND PLAN: This is a [id number] with a complaint of diverticulitis. colonoscopy as outpatient. We will need to . He may need surgical consultation remarkably at bedside as tolerated. Thank you for the consult. Boyd Neumann MD/ PhD cc:
== END 2018-04-22 17:44 | disposition home or self-care (01) | DRG 463 ==
LOC: H.ER 18:37 → H.ERHOLD 22:52 → H.TEL 04-21 02:12
PROVIDERS: ADMIT Internal Medicine; ATTEND Internal Medicine
PROC: 3E0234Z Introduction of Serum, Toxoid and Vaccine into Muscle, Percutaneous Approach (ICD-10-PCS; principal; 2018-04-21)
DX: N10 Acute pyelonephritis (principal); K57.92 Diverticulitis of intestine, part unspecified, without perforation or abscess without bleeding; Z23 Encounter for immunization